=== PATIENT | female | born 1940 | race Caucasian/White ===

== ENCOUNTER → 2018-09-25 | Outpatient (CLI) | payer OTHER | END | disposition home or self-care (01) | LOC: PLD 09:41 → LAB SHORT 09:41 | DX: D04.62 Carcinoma in situ of skin of left upper limb, including shoulder (principal) | CPT/HCPCS: 88305 ==

== ENCOUNTER 2019-05-31 03:47 | Emergency (ER) | payer OTHER ==
[~2019-05-31] VITALS: Ht 167.6 cm; Wt 64.9 kg
[2019-05-31] MEDS ORDERED: NAPR220 PO (03:58)
[2019-05-31 04:48] LABS: BASOPHILS ABSOLUTE AUTO 0.07 K/mm3 (0.00-0.23); BASOPHILS PERCENT AUTO 1 % (0-2); EOSINOPHILS ABSOLUTE AUTO 0.08 K/mm3 (0.00-0.68); EOSINOPHILS PERCENT AUTO 1 % (0-6); Hematocrit 39.3 % (33.0-51.0); Hemoglobin 13.3 g/dL (11.5-16.0); IMMATURE GRAN ABSOLUTE AUTO 0.01 K/mm3 (0.00-0.10); IMMATURE GRAN PERCENT AUTO 0 % (0-1); LYMPHOCYTES ABSOLUTE AUTO 2.28 K/mm3 (0.84-5.20); LYMPHOCYTES PERCENT AUTO 33 % (21-46); MONOCYTES ABSOLUTE AUTO 0.53 K/mm3 (0.16-1.47); MONOCYTES PERCENT AUTO 8 % (4-13); Mean Corpuscular HGB 31.5 pg (26.0-34.0); Mean Corpuscular HGB Conc 33.8 g/dL (31.5-36.5); Mean Corpuscular Volume 93 fL (80-100); Mean Platelet Volume 9.1 fL (9.1-12.4); NEUTROPHILS ABSOLUTE AUTO 3.87 K/mm3 (1.96-9.15); NEUTROPHILS PERCENT AUTO 57 % (41-73); Platelet Count 271 K/mm3 (150-400); RDW Coefficient Variation 13.1 % (11.7-14.2); RDW Standard Deviation 44.8 fL (35.1-46.3); Red Blood Cell Count 4.22 M/mm3 (3.80-5.20); White Blood Cell Count 6.84 K/mm3 (4.00-11.30)
[2019-05-31 05:07] LABS: Alanine Aminotransfer (ALT/SGP 20 U/L (12-78); Albumin, Blood 3.4 g/dL (3.4-5.0); Albumin/Globulin Ratio 1.1 (0.8-1.8); Alk Phos 53 U/L (50-136); Anion Gap 8 mmol/L (6-16); Aspartate Aminotrans (AST/SGOT 16 U/L (12-37); Bilirubin, Total 0.4 mg/dL (0.1-1.0); Blood Urea Nitrogen 11 mg/dL (8-24); Bun/Creatinine Ratio 13.1 (12.0-20.0); CO2, Blood 27 mmol/L (21-32); Calcium, Blood 8.7 mg/dL (8.5-10.1); Chloride, Blood 105 mmol/L (98-108); Creatinine, Blood 0.84 mg/dL (0.40-1.00); Globulin, Blood 3.1 g/dL (2.2-4.0); Glomerular Filtration Rate >60 (60-); Glucose, Blood 136 mg/dL (70-99); Potassium, Blood 3.4 mmol/L (3.5-5.5); Sodium, Blood 140 mmol/L (136-145); Total Protein, Blood 6.5 g/dL (6.4-8.2); Troponin I <0.015 ng/mL (0.000-0.040)
[2019-05-31 06:25] LABS: Source, Urine Clean Catch
[2019-05-31] MEDS ORDERED: ONDA4ODT MM (06:25)
[2019-05-31 06:28] LABS: Bilirubin, Urine Neg (Neg); Blood, Urine 1+ (Neg); Glucose Qualitative, Urine Neg (Neg); Ketones, Urine Neg (Neg); Leukocyte Esterase, Urine Neg (Neg); Nitrite, Urine Neg (Neg); Protein, Urine Neg (Neg); Specific Gravity, Urine 1.015 (1.003-1.022); Urobilinogen, Urine NORM (Normal)
[2019-05-31 06:33] LABS: Appearance, Urine Clear (Clear); Color, Urine Yellow (P-Yellow)
[2019-05-31 06:36] LABS: Red Blood Cells, Urine 0-2 /hpf (0-2); Squamous Epithelial Cells Few /hpf (Few); White Blood Cells, Urine 0-2 /hpf (0-5)
[2019-05-31 06:38] LABS: Bacteria Rare /hpf
== END 2019-05-31 06:48 | disposition home or self-care (01) ==
LOC: ER 03:47
PROVIDERS: Emergency Medicine
DX: R10.9 Unspecified abdominal pain (principal); R11.2 Nausea with vomiting, unspecified; R19.7 Diarrhea, unspecified
CPT/HCPCS: 36415; 74177; 80053; 81001; 83690; 84484; 85025; 93005; 93010; 96361; 96374-59; 99284-25; J2405; J7030; Q9967

== ENCOUNTER → 2019-06-03 | Outpatient (CLI) | payer OTHER ==
[~2019-06-03] MED LIST: NAPR220 PO; ONDA4ODT MM
== END | disposition home or self-care (01) ==
LOC: LAB SHORT 11:00 → LAB 11:00 → LAB FUT 06-03 10:00
DX: R10.13 Epigastric pain (principal)
CPT/HCPCS: 87338

== ENCOUNTER → 2019-11-10 | Outpatient (CLI) | payer OTHER | LOC: LAB EV 10:53 → LAB SHORT 10:53 | DX: N39.0 Urinary tract infection, site not specified (principal) | CPT/HCPCS: 87077; 87086; 87186 ==

== ENCOUNTER 2020-07-08 09:45 | Inpatient (IN) | payer OTHER ==
[~2020-07-08] VITALS: Ht 170.2 cm; Wt 63.5 kg
[2020-07-08 10:41] LABS: BASOPHILS ABSOLUTE AUTO 0.02 K/mm3 (0.00-0.23); BASOPHILS PERCENT AUTO 0 % (0-2); EOSINOPHILS ABSOLUTE AUTO 0.02 K/mm3 (0.00-0.68); EOSINOPHILS PERCENT AUTO 0 % (0-6); Hematocrit 43.9 % (33.0-51.0); Hemoglobin 14.6 g/dL (11.5-16.0); IMMATURE GRAN ABSOLUTE AUTO 0.03 K/mm3 (0.00-0.10); IMMATURE GRAN PERCENT AUTO 0 % (0-1); LYMPHOCYTES ABSOLUTE AUTO 0.75 K/mm3 (0.84-5.20); LYMPHOCYTES PERCENT AUTO 8 % (21-46); MONOCYTES ABSOLUTE AUTO 0.52 K/mm3 (0.16-1.47); MONOCYTES PERCENT AUTO 6 % (4-13); Mean Corpuscular HGB 30.5 pg (26.0-34.0); Mean Corpuscular HGB Conc 33.3 g/dL (31.5-36.5); Mean Corpuscular Volume 92 fL (80-100); Mean Platelet Volume 9.2 fL (9.1-12.4); NEUTROPHILS ABSOLUTE AUTO 7.89 K/mm3 (1.96-9.15); NEUTROPHILS PERCENT AUTO 86 % (41-73); Platelet Count 340 K/mm3 (150-400); RDW Coefficient Variation 13.5 % (11.7-14.2); RDW Standard Deviation 46.3 fL (35.1-46.3); Red Blood Cell Count 4.78 M/mm3 (3.80-5.20); White Blood Cell Count 9.23 K/mm3 (4.00-11.30)
[2020-07-08] MEDS ORDERED: ESTRADIOL-NORE1 EAC1 PO (10:43)
[2020-07-08 10:57] LABS: Alanine Aminotransfer (ALT/SGP 19 U/L (12-78); Albumin, Blood 4.1 g/dL (3.4-5.0); Albumin/Globulin Ratio 1.2 (0.8-1.8); Alk Phos 54 U/L (50-136); Anion Gap 9 mmol/L (6-16); Aspartate Aminotrans (AST/SGOT 14 U/L (12-37); Bilirubin, Total 0.6 mg/dL (0.1-1.0); Blood Urea Nitrogen 16 mg/dL (8-24); Bun/Creatinine Ratio 21.1 (12.0-20.0); CO2, Blood 22 mmol/L (21-32); Calcium, Blood 9.3 mg/dL (8.5-10.1); Chloride, Blood 103 mmol/L (98-108); Creatinine, Blood 0.76 mg/dL (0.40-1.00); Globulin, Blood 3.3 g/dL (2.2-4.0); Glomerular Filtration Rate >60 (60-); Glucose, Blood 155 mg/dL (70-99); Potassium, Blood 3.9 mmol/L (3.5-5.5); Sodium, Blood 134 mmol/L (136-145); Total Protein, Blood 7.4 g/dL (6.4-8.2)
[2020-07-08 11:46] LABS: Source, Urine Clean Catch
[2020-07-08 11:54] LABS: Bilirubin, Urine Neg (Neg); Blood, Urine 2+ (Neg); Glucose Qualitative, Urine Neg (Neg); Ketones, Urine 4+ (Neg); Leukocyte Esterase, Urine Neg (Neg); Nitrite, Urine Neg (Neg); Protein, Urine 2+ (Neg); Specific Gravity, Urine 1.015 (1.003-1.022); Urobilinogen, Urine NORM (Normal); pH, Urine 6.5 (5.0-8.0)
[2020-07-08 12:00] LABS: Appearance, Urine Clear (Clear); Color, Urine Yellow (P-Yellow)
[2020-07-08 12:03] LABS: Bacteria Few /hpf; Squamous Epithelial Cells Few /hpf (Few); White Blood Cells, Urine 0-2 /hpf (0-5)
[2020-07-08] MEDS ORDERED: ZOCOR20 MG PO (15:36)
[2020-07-08] MEDS ORDERED: Restoril15 MG PO (15:38)
[2020-07-08] MEDS ORDERED: REFRESH DIGITA1 EACH BOTHEYES (16:20)
--- NOTE | 2020-07-08 17:45 | NUR ---
DR MATOS IN TO SEE. PATIENT OC TO OR THIS OSMAN. MEDICATED FOR ABD PAIN 01/01. DENIES NAUSEA. SPOUSE IN TO SEE. NO ACUTE CHANGES OR C/O AT THIS TIME. CONT TO MONITOR.
--- NOTE | 2020-07-08 19:53 | NUR ---
Patient is alert and oriented and prepared for surgery. OR crew took patient to OR @ 1900.
--- NOTE | 2020-07-08 22:55 | NUR ---
PATIENT RETURNED FROM ICU-RECOVERY AT 2230, AWAKE AND ALERT. DENIES PAIN, NAUSEA OR VOMITING. LT LOWER QUADRANT INGUINAL AREA WITH A GAUZE DRESSING THAT IS C/D/I, FROM A SURGICAL INCISION FOR FEMORAL HERNIA. PATIENT HAS CALLED , SURGEON ALSO CALLED . CALL LIGHT IN PLACE. PATIENT REORIENTED TO THE CALL LIGHT AND IT'S FUNCTIONS.
--- NOTE | 2020-07-09 05:30 | NUR ---
PATIENT HAS HAD NO COMPLAINTS OF PAIN OR OTHERWISE POST OP. SHE IS INDEPENDENT TO THE BR. HER DRESSING IS C/D/I ON HER LEFT LOWER QUADRANT. PATIENT IS ABLE TO SLEEP WITHOUT DIFFICULTY. CALL LIGHT IN REACH.
--- NOTE | 2020-07-09 14:00 | NUR ---
PATIENT REPORTS HAVING A SMALL, FORMED, BROWN BM. TOLERATED SOUP AND ROLL FOR LUNCH W/O C/O. UP TO BR, VOIDING. AWAITING MD ROUNDING.
== END 2020-07-09 19:35 | disposition home or self-care (01) | DRG 351 ==
LOC: ER 09:45 → SURS 09:46
PROVIDERS: Emergency Medicine; ADMIT Surgery
PROC: 0YU80JZ Supplement Left Femoral Region with Synthetic Substitute, Open Approach (ICD-10-PCS; principal; 2020-07-08 20:30)
DX: K41.30 Unilateral femoral hernia, with obstruction, without gangrene, not specified as recurrent (principal); K56.609 Unspecified intestinal obstruction, unspecified as to partial versus complete obstruction; E78.5 Hyperlipidemia, unspecified
CPT/HCPCS: 36415; 74177; 80053; 81001; 83690; 84484; 85025; 93005; 93010; 96361; 96374; 96375; 96376; 99285-25; C1781; G0378; J0694; J1100; J1650; J2270; J2405; J2704; J3010; J7030; J7120; Q9967; U0003

== ENCOUNTER → 2020-08-27 | Outpatient (CLI) | payer OTHER ==
[~2020-08-27] MED LIST changes: +ESTRADIOL-NORE1 EAC1 PO; +REFRESH DIGITA1 EACH BOTHEYES; +Restoril15 MG PO; +ZOCOR20 MG PO
[2020-08-31 15:10] LABS: HPV 16 Negative (Negative); HPV 18 Negative (Negative); HPV OTHER HR TYPES Negative (Negative)
== END | disposition home or self-care (01) ==
LOC: LAB 13:41
PROVIDERS: Obstetrics & Gynecology
DX: N88.8 Other specified noninflammatory disorders of cervix uteri (principal)
CPT/HCPCS: 87624; 88142

== ENCOUNTER → 2020-11-09 | Outpatient (CLI) | payer OTHER | END | disposition home or self-care (01) | LOC: LAB SHORT 12:16 → LAB 12:16 | DX: D48.5 Neoplasm of uncertain behavior of skin (principal) | CPT/HCPCS: 88305 ==

== ENCOUNTER → 2021-08-01 | Outpatient (CLI) | payer OTHER | END | disposition home or self-care (01) | LOC: LAB 11:07 → LAB SHORT 11:07 | DX: D48.5 Neoplasm of uncertain behavior of skin (principal) | CPT/HCPCS: 88305 ==

== ENCOUNTER → 2022-05-18 | Outpatient (CLI) | payer OTHER | END | disposition home or self-care (01) | LOC: LAB 10:55 → PLD 10:55 → LAB SHORT 10:55 | DX: D48.5 Neoplasm of uncertain behavior of skin (principal) | CPT/HCPCS: 88305 ==

== ENCOUNTER → 2022-06-05 | Outpatient (CLI) | payer OTHER | END | disposition home or self-care (01) | LOC: PLD 08:00 → LAB SHORT 08:00 | DX: C44.712 Basal cell carcinoma of skin of right lower limb, including hip (principal) | CPT/HCPCS: 88305 ==

== ENCOUNTER → 2023-05-23 | Outpatient (CLI) | payer OTHER | LOC: LAB SHORT 08:45 → LAB 08:45 | DX: D48.5 Neoplasm of uncertain behavior of skin (principal) | CPT/HCPCS: 88305 ==